=== PATIENT | male | born 1975 | race Caucasian/White ===

== ENCOUNTER → 2020-08-07 15:39 | Outpatient (BNVA) | payer OTHER, SELFPAY | PROVIDERS: PCP Internal Medicine; Visit Provider Surgery | DX: G89.18 Other acute postprocedural pain (principal); Z87.19 Personal history of other diseases of the digestive system | CPT/HCPCS: 99212 ==

== ENCOUNTER 2021-01-16 20:19 | Emergency (ER) | payer OTHER, SELFPAY ==
--- NOTE | ~2021-01-16 | XR_ITS ---
EXAMINATION: XR FOURTH FINGER, RIGHT HAND CLINICAL INFORMATION: Injury COMPARISON: None TECHNIQUE: 3 views of the right fourth digit. FINDINGS: There is some mild soft tissue swelling. On the lateral view, a nondisplaced fracture of the ventral surface of the terminal tuft is seen. No other fractures are seen. XR/XR finger RT min 2V IMPRESSION: Fracture terminal tuft right finger.
[2021-01-16 20:56] VITALS: BP 155/100; PULSE 87; RESP 18; TEMP 37; O2SAT 98; BMI 37.3
[2021-01-16] MEDS: Ketorolac Tromethamine 15 MG/ML VIAL IM (22:13)
[2021-01-16] MEDS: Diphth,Pertus(ACell),Tet Adult 0.5 ML SYRINGE IM (22:14)
[2021-01-16] MEDS: Acetaminophen 325 MG TABLET 975 MG PO (22:14)
--- NOTE | 2021-01-16 22:17 | ED_ITS ---
HPI - Extremity Problem General Chief complaint: Extremity Injury, Upper Stated complaint: Finger injury/Injured at work 01/16 Time Seen by Provider: 01/16/21 21:36 Source: patient Mode of arrival: ambulatory History of Present Illness HPI Narrative: This is a 45-year-old male who sustained a work related injury where by a piece of equipment that he was working with clamped down on the tip of his right 4th ring finger and now has noted that there is bruising and pain to that area. He is not sure of his last tetanus but states that it was ?years ago?. Related Data Allergies Allergy/AdvReac Type Severity Reaction Status Date / Time No Known Allergies Allergy Unverified 07/11/20 17:54 bananas, apples, avocado, Allergy Unknown Uncoded 05/20/20 00:00 plum Review of Systems Review of Systems: Pertinent positives and negatives as stated in HPI 10 point review of systems otherwise negative. PMFSH Past Medical History Source: nursing notes reviewed Medical History Kidney stones Morbid obesity Surgical History Umbilical hernia Social History Social History Alcohol intake: never Smoking Status: Never smoker Use of substances other than those prescribed or required for medical reasons: No Advance Directives: No Advance Directives Information Provided: Yes Physical Exam Vital Signs: Vital Signs: Last Vital Signs Temp 98.6 F 01/16/21 20:56 Pulse 87 01/16/21 20:56 Resp 18 01/16/21 20:56 BP 155/100 H 01/16/21 20:56 Pulse Ox 98 01/16/21 20:56 Body Mass Index 37.3 VITAL SIGNS: Reviewed. GENERAL: Well developed, well nourished, in no acute distress. HEAD: Normocephalic/atraumatic, NOSE: Nares patent bilateral OROPHARYNX: no oral lesions noted, posterior pharynx clear NECK: Supple, no adenopathy LUNGS: Normal breath sounds. No adventitious sounds or accessory muscle use. SpO2<98> CARDIOVASCULAR: Regular rate and rhythm without noted murmurs ABDOMEN: Soft, non-tender, non-distended with bowel sounds. RIGHT 4TH FINGER: There is noted ecchymosis to the pad of the distal right 4th finger with bruising noted and superficial lacerations to the bilateral lateral aspects of the distal digit, sensation is intact capillary refill is less than 3 seconds, and range of motion testing at the MCP/PIP/DIP is intact. NEUROLOGIC: Alert and oriented x 4. Course Course Course Narrative: 45-year-old male with history and clinical presentation consistent with mild crush injury to the 4th, right ring finger and on review of x-ray there is a noted fracture of the terminal tuft that is nondisplaced. Patient received combination of analgesics with good resolution of pain. Patient will be bella-taped and instructed to follow-up with orthopedics for re- evaluation. Patient received Tdap at this visit. Discharge Plan Discharge Clinical Impression: Closed fracture of tuft of distal phalanx of finger Patient Disposition: Home, Self-Care Instructions: Finger Fracture (ED) Additional Instructions: 1. Tylenol 1000 mg, orally, every 6 hours as needed for pain control. Do not exceed 4000 mg within 24 hours. 2. Ibuprofen 400 mg, orally with milk or food, every 6 hours as needed for pain control. 3. Continue to bella tape your fingers together until you have been re-evaluated by your primary care provider within the next 1-2 days as well as following up with Orthopedics. Do not hesitate to return to the emergency department should you experience any acute worsening of her symptoms. Referrals: Rebeka Holbrook MD [Primary Care Provider] - 2 days (Re-evaluation further outpatient follow-up for right 4th ring finger tuft fracture (nondisplaced).) German Holt MD [Physician] - 2 days (Please evaluate a right, nondisplaced, ring finger tuft fracture.)
[2021-01-16 22:38] VITALS: BP 140/84; PULSE 80; RESP 18
== END 2021-01-16 22:40 | disposition home or self-care (01) ==
PROVIDERS: Emergency Provider Student in an Organized Health Care Education/Training Program; PCP Internal Medicine
DX: S62.664A Nondisplaced fracture of distal phalanx of right ring finger, initial encounter for closed fracture (principal); W31.82XA Contact with other commercial machinery, initial encounter; Y93.89 Activity, other specified; Y92.63 Factory as the place of occurrence of the external cause; Y99.0 Civilian activity done for income or pay
CPT/HCPCS: 73140; 90471; 90715; 96372; 99284; J1885

== ENCOUNTER → 2021-01-22 13:37 | Outpatient (BNVA) | payer OTHER, SELFPAY | PROVIDERS: Visit Provider Physician Assistant | DX: S62.639A Displaced fracture of distal phalanx of unspecified finger, initial encounter for closed fracture (principal) | CPT/HCPCS: 99202 ==

== ENCOUNTER 2023-06-26 17:04 | Emergency (ER) | payer OTHER, SELFPAY ==
[2023-06-26 17:36] VITALS: BP 182/97; PULSE 89; RESP 20; TEMP 36.8; BMI 40.2
--- NOTE | 2023-06-26 17:36 | ED_ITS ---
HPI - Back Pain/Injury General Chief Complaint: Back Pain/Injury Stated Complaint: lower back pain Time Seen by Provider: 06/26/23 17:40 Source: patient, RN notes reviewed and old records reviewed Mode of arrival: ambulatory History of Present Illness HPI Narrative: 47-year-old male with a past medical history of obesity, umbilical hernia, presenting to the ED complaining of left-sided low back pain radiating down left lower extremity x5 days. Denies known injury/trauma or fall, numbness, tingling, weakness, urinary incontinence/retention, fever. Denies taking anything for pain. MD elicited complaint: back pain Related Data Previous Rx's Medication Instructions Recorded acetaminophen 500 mg tablet 500 mg PO Q6H PRN fever or pain 06/26/23 (Tylenol Extra Strength) #14 tabs cyclobenzaprine 5 mg tablet 5 mg PO Q8H PRN pain (scale score 06/26/23 7-10) 5 days #14 tabs lidocaine 5 % topical patch 1 patch topical DAILY PRN pain #30 06/26/23 (Lidoderm) ea naproxen 500 mg tablet 500 mg PO BID PRN pain 10 days #20 06/26/23 tabs Allergies Allergy/AdvReac Type Severity Reaction Status Date / Time No Known Allergies Allergy Verified 01/22/21 13:47 bananas, apples, avocado, Allergy Unknown Rash Uncoded 01/22/21 13:47 plum Review of Systems Review of Systems: Constitutional: No Fever, No Chills ENT/Mouth: No Ear Pain, No Nasal Congestion, No sore throat, No Rhinorrhea, No Swallowing Difficulty Cardiovascular: No Chest Pain, No SOB Respiratory: No Cough, No Sputum Gastrointestinal: No Nausea, No Vomiting, No Diarrhea, No Constipation, No Abdominal pain Genitourinary: No Dysuria, No Urinary Frequency, No Hematuria, No Urinary Incontinence/retention, No Flank Pain Musculoskeletal: + joint pain, No Myalgias, No Joint Swelling Skin: No Skin Lesions, No rash Neuro: No Weakness, No Numbness, No Paresthesias Yes all other systems are reviewed and are negative Constitutional: Constitutional: Reports as per HPI Neurologic: Denies Sensory deficit (Neuro) PMFSH Past Medical History Attestation statement: The following information was validated with the patient. Source: old records reviewed Medical History Kidney stones Morbid obesity Surgical History Umbilical hernia Social History Social History Alcohol intake: never Physical Exam Vital Signs: Vital Signs: Last Vital Signs Temp 98.3 F 06/26/23 17:36 Pulse 89 06/26/23 17:36 Resp 20 06/26/23 17:36 BP 182/97 H 06/26/23 17:36 O2 Del Method Room Air 06/26/23 17:36 BMI result Body Mass Index 40.2 Const: General: cooperative, healthy appearing and no acute distress Orientation/consciousness: patient oriented x3 Limitations: no limitations HEENT: Head: Yes normal to inspection and Yes atraumatic Ears: hearing grossly normal bilaterally General nose exam: Normal external nose present Face and sinus: Yes normal facial exam Eyes: General: appearance normal, both eyes and all related structures EOM: EOMs intact bilaterally Neck: Neck: Yes normal visual inspection and Yes no meningeal signs Resp: Effort & Inspection: normal respiratory effort and no respiratory distress Cardio: Rate: regular rate GI: Inspection: Yes normal to inspection Palpation (GI): Soft to palpation, nontender, no guarding and not rigid : General: Yes no CVA tenderness Back/Spine/Pelvis: Other: No midline cervical/thoracic/lumbar spinous tenderness/step-off or deformity. + left-sided lower lumbar/buttock MSK tenderness to palpation reproducing subjective complaint. No erythema/ecchymosis or rash Back: no CVA tenderness Skin: Rashes: no rashes Wounds: no wounds Neuro: Other: Strength intact throughout. No saddle anesthesia. Sensation intact to light touch. Neurovascular intact distally General: patient oriented x3, gait normal, tone normal, moves all extremities, no meningeal signs, no focal motor deficits and CN's II-XI intact bilaterally Cranial nerves: Yes CN's II-XII intact bilaterally Gait exam (Neuro): Normal gait present Motor exam (neuro): 5/5 motor strength present throughout Sensory Exam: No Sensory deficit (Neuro) Extrem: General: Yes normal to inspection Medical Decision Making Medical Decision Making MDM Narrative: 47-year-old male with a past medical history of obesity, umbilical hernia, presenting to the ED complaining of left-sided low back pain radiating down left lower extremity x5 days. On exam vital signs stable, mildly hypertensive likely from pain, NAD, nontoxic appearing, ambulating with steady gait, physical exam as above. No midline spinous tenderness through or red flag symptoms. No saddle anesthesia. Concern for sciatica/MSK pain/strain and spasming. Low suspicion for cauda equina/cord compression, epidural abscess, renal stone/Tylenol Plan: Pain management, PCP follow-up Please refer to course for remaining clinical decision making, interpretation of labs/imaging results, and discussions with consultants and/or family members. Differential Diagnosis Differential Diagnoses: The differential diagnosis associated with the presentation includes As above External Record Review External record reviewed: Inpatient record, Office record, Outpatient record, Prior outpatient labs, Prior outpatient radiology, Primary care record and Outside ED record Tests considered The following testing was considered but not selected: As above Prescription Management I considered prescription management with: Pain Medication Discharge Plan Discharge Clinical Impression: Lumbar radiculopathy Patient Disposition: Home, Self-Care Instructions: Lumbar Radiculopathy (ED) Additional Instructions: Your pain is likely musculoskeletal Flexeril is a muscle relaxer, take at night as it makes you drowsy, do not drive, drink alcohol, or operate machinery while taking it Naproxen as an anti-inflammatory / pain medication, take with food Lidoderm patches are numbing patches, apply to painful area In addition take Tylenol at home If symptoms persist or worsen, pain becomes unbearable, you developed urinary retention or incontinence, or weakness return to the ED Es probable que plaza dolor sea musculoesquel?sarah. Flexeril es un relajante muscular, t?mendoza por la noche ya que produce somnolencia, no conduzca, ignacio alcohol ni opere maquinaria mientras lo bhavesh. Naproxeno ronnie antiinflamatorio/analg?sico, michael con alimentos Los parches de Lidoderm son parches adormecedores, se aplican en el ?tramaine dolorida. Adem?s, tome Tylenol en casa. Si los s?ntomas persisten o empeoran, el dolor se vuelve insoportable, usted desarrolla retenci?n urinaria o incontinencia, o debilidad, regrese al servicio de urgencias. Prescriptions: New acetaminophen [Tylenol Extra Strength] 500 mg tablet 500 mg PO Q6H PRN (Reason: fever or pain) Qty: 14 0RF lidocaine [Lidoderm] 5 % adhesive patch,medicated 1 patch topical DAILY MDD remove after 12 hours PRN (Reason: pain) Qty: 30 0RF Rx Instructions: leave on most painful area for up to 12 hrs naproxen 500 mg tablet 500 mg PO BID PRN (Reason: pain) 10 Days Qty: 20 0RF cyclobenzaprine 5 mg tablet 5 mg PO Q8H PRN (Reason: pain (scale score 7-10)) 5 Days Qty: 14 0RF Referrals: Physician,Unknown J [Primary Care Provider] - 5 days Print Language: Bangladeshi
== END 2023-06-26 17:48 | disposition home or self-care (01) ==
LOC: HO.ED 17:46
PROVIDERS: Emergency Provider Student in an Organized Health Care Education/Training Program
DX: M54.16 Radiculopathy, lumbar region (principal); M54.50 Low back pain, unspecified; E66.01 Morbid (severe) obesity due to excess calories; Z68.41 Body mass index [BMI] 40.0-44.9, adult
CPT/HCPCS: 99282; 99283

== ENCOUNTER 2023-07-19 04:24 | Emergency (ER) | payer OTHER, SELFPAY ==
[2023-07-19 04:42] VITALS: BP 161/94; PULSE 76; RESP 16; TEMP 36.9; O2SAT 98; BMI 38.7
--- NOTE | 2023-07-19 04:54 | ED_ITS ---
HPI - Back Pain/Injury General Chief Complaint: Extremity Problem Stated Complaint: pain in leg/butt area Time Seen by Provider: 07/19/23 04:34 Source: patient, family and old records reviewed Mode of arrival: ambulatory Limitations: no limitations History of Present Illness HPI Narrative: 47 yo male with no sig PMH here with c/o L low back pain radiating into buttocks and upper leg no numbness weakness no loss of control of bowel/bladder no IVDA, no AC therapy. Hx of same in past beginning of month, got better and then exacerbated at work while lifting. No medications prior to coming in. No AC therapy MD elicited complaint: back pain and back injury Pertinent past history: prior back pain Onset (ago): day(s) (1) Timing: constant Severity: moderate Similar Symptoms Previously: Yes Quality: sharp Location: lumbar spine Radiation: buttocks and left upper leg Exacerbating factors: movement Relieving factors: immobilization Context: while lifting and turning/twisting Associated symptoms: denies other symptoms Work related injury: No Related Data Previous Rx's Medication Instructions Recorded acetaminophen 500 mg tablet 500 mg PO Q6H PRN fever or pain 06/26/23 (Tylenol Extra Strength) #14 tabs cyclobenzaprine 5 mg tablet 5 mg PO Q8H PRN pain (scale score 06/26/23 7-10) 5 days #14 tabs lidocaine 5 % topical patch 1 patch topical DAILY PRN pain #30 06/26/23 (Lidoderm) ea naproxen 500 mg tablet 500 mg PO BID PRN pain 10 days #20 06/26/23 tabs diazepam 5 mg tablet (Valium) 5 mg PO TID PRN muscle spasm #10 07/19/23 tabs prednisone 20 mg tablet 40 mg (2 x 20 mg) PO DAILY 4 days 07/19/23 #8 tabs Allergies Allergy/AdvReac Type Severity Reaction Status Date / Time No Known Allergies Allergy Verified 01/22/21 13:47 bananas, apples, avocado, Allergy Unknown Rash Uncoded 01/22/21 13:47 plum Review of Systems Review of Systems: Constitutional : No Weight loss, No Fever, No Chills, ENT/Mouth : No Hearing loss, No Ear Pain, No Nasal Congestion, No Sinus Pain, No Hoarseness, No sore throat, No Rhinorrhea, No Swallowing Difficulty Cardiovascular : No Chest Pain, No SOB Respiratory : No Cough, No Dyspnea Gastrointestinal : No Nausea, No Vomiting, No Diarrhea, No abdominal Pain, No Hematochezia, No Melena Genitourinary : No Dysuria, No Urinary Frequency, No Hematuria, No Urinary Incontinence, Musculoskeletal : positive back pain Skin : No Skin Lesions, No rash Neuro : No Weakness, No Numbness, No Paresthesias, no loss of bowel or bladder incontinence, no saddle anesthesia All other systems reviewed and are negative PMFSH Past Medical History Attestation statement: The following information was validated with the patient. Medical History Kidney stones Morbid obesity Surgical History Umbilical hernia Social History Social History (Updated 07/19/23 @ 04:54 by Farheen Barboza DO) Alcohol intake: never Patient Tobacco Use Status: Tobacco use Unknown Advance Directives: No Advance Directives Information Provided: No Physical Exam Vital Signs: Vital Signs: Last Vital Signs Temp 98.4 F 07/19/23 04:42 Pulse 76 07/19/23 04:42 Resp 16 07/19/23 04:42 BP 161/94 H 07/19/23 04:42 Pulse Ox 98 07/19/23 04:42 O2 Del Method Room Air 07/19/23 04:42 BMI result Body Mass Index 38.7 Appearance: Alert. Oriented X3. No acute distress. Eyes: Pupils equal, round and reactive to light. ENT: Pharynx normal. Neck: Normal inspection. Neck supple. CVS: Normal heart rate and rhythm. Pulses normal. Respiratory: No respiratory distress. Breath sounds normal. Abdomen: Soft and nontender. Skin: Skin warm and dry. Normal skin color. Normal skin turgor. Extremities: No lower extremity edema. No calf ttp Neuro: Oriented X 3. No motor deficit. No sensory deficit. L5 5/5 bilaterally, SILT inner thigh Medical Decision Making Medical Decision Making MDM Narrative: 47 yo male with hx of sciatica here with recurrence of same symptoms no IVDA, no abdominal pain, no CE symptoms - NV Intact, pain is reproduceable he is not toxic. At this time will start on prednisone and PO muscle relaxers, he denies hx of DM. Stable for outpatient management. No trauma reported. Differential Diagnosis Differential Diagnoses: The differential diagnosis associated with the presentation includes lumbar strain, sciatica Admission/Observation Consideration of admission/observation: Escalation of care including admission/observation considered able to walk, not toxic, stable for outpatient management Independent Historian Clinical information obtained from an independent historian. History obtained from or confirmed by: Spouse External Record Review External record reviewed: Inpatient record Prescription Management I considered prescription management with: Pain Medication and Other Discharge Plan Discharge Clinical Impression: Sciatica Qualifiers: Laterality: left Qualified Code(s): M54.32 - Sciatica, left side Patient Disposition: Home, Self-Care Instructions: Sciatica (ED), Lower Back Exercises (ED) Additional Instructions: please follow up with your doctor for physical therapy. return for numbness, weakness, loss of control of bowel or bladder or any other concerns. do not drive or drink alcohol with muscle relaxer, do not operate with heavy machinery. take steroid with food. french un seguimiento con plaza m?dico para recibir fisioterapia. Regrese por entumecimiento, debilidad, p?rdida de control del intestino o la vejiga o cualquier otra inquietud. no conducir ni beber alcohol con relajante muscular, no operar con maquinaria pesada. tome esteroides con la comida. Prescriptions: New prednisone 20 mg tablet 40 mg PO DAILY 4 Days Qty: 8 0RF diazepam [Valium] 5 mg tablet 5 mg PO TID PRN (Reason: muscle spasm) Qty: 10 0RF Rx Instructions: partial fill is okay No Action acetaminophen [Tylenol Extra Strength] 500 mg tablet 500 mg PO Q6H PRN (Reason: fever or pain) Qty: 14 0RF lidocaine [Lidoderm] 5 % adhesive patch,medicated 1 patch topical DAILY MDD remove after 12 hours PRN (Reason: pain) Qty: 30 0RF Rx Instructions: leave on most painful area for up to 12 hrs naproxen 500 mg tablet 500 mg PO BID PRN (Reason: pain) 10 Days Qty: 20 0RF cyclobenzaprine 5 mg tablet 5 mg PO Q8H PRN (Reason: pain (scale score 7-10)) 5 Days Qty: 14 0RF Stand Alone Forms: Work/School Release Print Language: Croatian
[2023-07-19] MEDS: diazePAM 2 MG TABLET 5 MG PO (05:18)
[2023-07-19] MEDS: predniSONE 20 MG TABLET 40 MG PO (05:19)
== END 2023-07-19 05:24 | disposition home or self-care (01) ==
PROVIDERS: Emergency Provider Emergency Medicine
DX: M54.42 Lumbago with sciatica, left side (principal); E66.9 Obesity, unspecified; Z68.38 Body mass index [BMI] 38.0-38.9, adult
CPT/HCPCS: 99282; 99283